=== PATIENT | female | born 1995 | race Caucasian/White ===

== ENCOUNTER → 2016-08-24 | Outpatient (CLI) | payer MEDICAID ==
[2016-08-24 19:13] LABS: BASO % 0.1 % (0.0-1.0); EOS # 0.1 K/mm3 (0.0-0.50); EOS % 1.2 % (0.0-3.0); LARGE UNSTAINED CELL # 0.1 K/mm3 (0.0-0.4); LARGE UNSTAINED CELL % 1.5 % (0.0-4.0); LYMPH # 0.9 K/mm3 (1.5-6.5); LYMPH % 15.1 % (24.0-44.0); MEAN CORPUSCULAR HEMOGLOBIN 31.1 pg (27.0-33.0); MEAN CORPUSCULAR HGB CONC 34.8 g/dl (32.0-36.5); MEAN CORPUSCULAR VOLUME 89.2 fl (80.0-96.0); MONO # 0.3 K/mm3 (0.0-0.8); MONO % 4.6 % (0.0-5.0); NEUTROPHILS # 4.4 K/mm3 (1.8-7.7); NEUTROPHILS % 77.4 % (36.0-66.0); PLATELET COUNT, AUTOMATED 194 k/mm3 (150-450); RED CELL DISTRIBUTION WIDTH 12.9 % (11.5-14.5); WHITE BLOOD COUNT 5.7 K/mm3 (4.0-10.0)
[2016-08-27 11:31] LABS: HBsAg Prenatal NEGATIVE (NEGATIVE)
== END ==
LOC: M SMT 10:29
PROVIDERS: ATTEND Obstetrics & Gynecology
DX: Z34.82 Encounter for supervision of other normal pregnancy, second trimester (principal)

== ENCOUNTER → 2016-10-03 | Outpatient (CLI) | payer OTHER ==
--- NOTE | 2016-10-04 05:32 | REP ---
Clinical: Anatomical evaluation. Comparison: None . Findings: Examination demonstrates a single live intrauterine in breech presentation. motion is identified by technologist. Placenta is noted anteriorly and grade one without evidence for placenta previa or abruption. Amniotic fluid volume is normal. Cervix measures 3.4 cm in length and appears closed. No evidence for nuchal cord. Gestational age by LMP 18 weeks 1 day with SHAUN 03/05/2017 . Gestational age by current measurements 18 weeks 1 day with SHAUN 03/05/2017 . FHR equals 144 beats per minute. BPD 4.0 cm 18 weeks 0 days HC 14.9 cm 18 weeks 0 days AC 12.4 cm 18 weeks 0 days FL 2.6 cm 18 weeks 0 days HL 2.6 cm 18 weeks 2 days HC/AC ratio 1.20 Estimated weight 220 grams ( 43rd percentile). Anatomical assessment demonstrates normal structures including cranium, choroid plexus, cavum, cerebellum/posterior fossa, facial features, lungs, four-chamber heart/ventricular outflow tracts, diaphragm, stomach, cord insertion/three-vessel cord, kidneys/bladder, spine, and extremities. Impression: Single live intrauterine in breech presentation demonstrating appropriate interval growth. Anatomical assessment is complete and normal. No gross abnormalities are identified. Signed by Guero Rizvi MD 10/04/2016 05:25 A
== END ==
LOC: M RAD 09:37
PROVIDERS: ATTEND Advanced Practice Midwife
DX: Z36 Encounter for antenatal screening of mother (principal)

== ENCOUNTER → 2016-11-21 | Outpatient (CLI) | payer MEDICAID, OTHER ==
[~2016-11-21] MED LIST: ACET50TA PO; IBUP-1022 PO; OXYC1SOL5 PO; PERCOCET PO; PRE-TAB3 PO; ZOLO25TA PO
[2016-11-21 13:19] LABS: MEAN CORPUSCULAR HGB CONC 34.3 g/dl (32.0-36.5); MEAN CORPUSCULAR VOLUME 93.4 fl (80.0-96.0); WHITE BLOOD COUNT 7.2 K/mm3 (4.0-10.0)
== END ==
LOC: M SMT 09:57
PROVIDERS: ATTEND Obstetrics & Gynecology
DX: Z34.82 Encounter for supervision of other normal pregnancy, second trimester (principal)

== ENCOUNTER 2017-01-08 20:07 | Outpatient (CLI) | payer MEDICAID, OTHER ==
[~2017-01-08] VITALS: Ht 144.8 cm; Wt 58.0 kg
[2017-01-08 20:17] VITALS: BP 101/61
[2017-01-08] MEDS ORDERED: PRE-TAB3 PO (20:44)
[2017-01-28] MEDS ORDERED: PERCOCET PO (18:43)
[2017-03-01] MEDS ORDERED: ZOLO25TA PO (07:42)
[2017-03-01] MEDS ORDERED: ACET50TA PO (10:47)
[2017-03-01] MEDS ORDERED: IBUP-1022 PO (10:47)
== END 2017-01-08 21:17 | disposition home or self-care (01) ==
LOC: M LDO 20:07
PROVIDERS: ATTEND Advanced Practice Midwife
DX: O99.89 Other specified diseases and conditions complicating pregnancy, childbirth and the puerperium (principal); Z3A.32 32 weeks gestation of pregnancy; R10.9 Unspecified abdominal pain; R19.7 Diarrhea, unspecified; O13.3 Gestational [pregnancy-induced] hypertension without significant proteinuria, third trimester; F32.9 Major depressive disorder, single episode, unspecified; F41.9 Anxiety disorder, unspecified; O99.343 Other mental disorders complicating pregnancy, third trimester

== ENCOUNTER → 2017-01-10 | Outpatient (REF) | payer OTHER, MEDICAID | LOC: M LAB REF 13:13 | PROVIDERS: ATTEND Advanced Practice Midwife | DX: Z34.83 Encounter for supervision of other normal pregnancy, third trimester (principal); Z36 Encounter for antenatal screening of mother ==

== ENCOUNTER → 2017-01-28 | Outpatient (CLI) | payer OTHER, MEDICAID ==
--- NOTE | 2017-01-28 17:52 | REP ---
Urinary tract sonography: History: Low back pain. Hematuria. No comparison study. 34 weeks gestation. Findings: heart rate is recorded at the time of this study at 144 beats per minute. Scanning at the level of the urinary bladder shows some hypoechoic debris within the bladder lumen. Bladder hester are smooth. There is moderate to severe right-sided hydronephrosis. The right renal pelvis measures 2.8 cm in AP dimension. There is a partially shadowing echogenic focus in the upper pole collecting system of the right kidney consistent with a stone measuring 10 x 7 x 11 mm. The right kidney measures 12.6 x 5.2 x 4.7 cm. Left renal dimensions are 11.0 x 4.7 x 4.4 cm. There is mild left-sided hydronephrosis. No left renal calculi are seen. No renal masses observed on either side. Impression: Moderate to advanced hydronephrosis on the right. There is a nonobstructive upper pole 1.1 cm calculus. No ureteral calculus is observed sonographically. Mild hydronephrosis is noted on the left. Signed by Sree Ferreira MD 01/28/2017 08:02 P
== END ==
LOC: M RAD 17:00
PROVIDERS: ATTEND Obstetrics & Gynecology
DX: R31.9 Hematuria, unspecified (principal)

== ENCOUNTER → 2017-02-05 | Outpatient (REF) | payer OTHER, MEDICAID | LOC: M LAB REF 17:03 | PROVIDERS: ATTEND Obstetrics & Gynecology | DX: Z34.83 Encounter for supervision of other normal pregnancy, third trimester (principal); Z36.85 Encounter for antenatal screening for Streptococcus B ==

== ENCOUNTER 2017-02-16 04:22 | Outpatient (CLI) | payer OTHER, MEDICAID ==
[~2017-02-16] VITALS: Ht 144.8 cm; Wt 64.4 kg
[~2017-02-16 04:22] MED LIST changes: -ACET50TA PO; -IBUP-1022 PO; -OXYC1SOL5 PO; -ZOLO25TA PO
[2017-02-16] MEDS ORDERED: OXYC1SOL5 PO (05:44)
[2017-02-16] MEDS ORDERED: ACETAMINOPHEN/CODEINE 12.5 ML UDC PO ONE (05:45)
[2017-02-16 06:17] VITALS: BP 131/76
[2017-03-01] MEDS ORDERED: ZOLO25TA PO (07:42)
[2017-03-01] MEDS ORDERED: ACET50TA PO (10:47)
[2017-03-01] MEDS ORDERED: IBUP-1022 PO (10:47)
== END 2017-02-16 07:05 | disposition home or self-care (01) ==
LOC: M LDO 04:22
PROVIDERS: ATTEND Obstetrics & Gynecology
DX: O47.1 False labor at or after 37 completed weeks of gestation (principal); Z3A.37 37 weeks gestation of pregnancy; N20.0 Calculus of kidney

== ENCOUNTER → 2018-01-09 | Outpatient (REF) | payer OTHER ==
[2018-01-09 17:57] LABS: CHLAMYDIA DNA AMPLIFICATION NEGATIVE (NEGATIVE); GC DNA AMPLIFICATION NEGATIVE (NEGATIVE)
== END ==
LOC: M LAB REF 13:36
DX: N94.10 Unspecified dyspareunia (principal)

== ENCOUNTER → 2018-05-06 | Outpatient (CLI) | payer OTHER ==
[~2018-05-06] MED LIST changes: +IBUP-1022 PO; +MAPA500T2 PO; +OXYC1SOL5 PO; +ZOLO25TA PO
[2018-05-06 17:52] LABS: HCG, SERUM QUALITATIVE NEGATIVE (NEGATIVE)
[2018-05-06 17:55] LABS: HEMATOCRIT 41.2 % (36.0-47.0); HEMOGLOBIN 13.3 g/dl (12.0-15.5); MEAN CORPUSCULAR HEMOGLOBIN 28.9 pg (27.0-33.0); MEAN CORPUSCULAR HGB CONC 32.3 g/dl (32.0-36.5); MEAN CORPUSCULAR VOLUME 89.6 fl (80.0-96.0); PLATELET COUNT, AUTOMATED 226 10^3/uL (150-450); WHITE BLOOD COUNT 3.3 10^3/uL (4.0-10.0)
[2018-05-06 18:00] LABS: FREE T4 0.86 NG/DL (0.76-1.46); THYROID STIMULATING HORMONE 0.849 uIU/ML (0.358-3.740)
== END ==
LOC: M SMT 10:46
PROVIDERS: ATTEND Advanced Practice Midwife
DX: N92.6 Irregular menstruation, unspecified (principal)

== ENCOUNTER → 2018-07-07 | Outpatient (CLI) | payer OTHER ==
[2018-07-07 13:28] LABS: HCG, SERUM QUALITATIVE NEGATIVE (NEGATIVE)
== END ==
LOC: M SMT 11:10
PROVIDERS: ATTEND Advanced Practice Midwife
DX: N92.6 Irregular menstruation, unspecified (principal)

== ENCOUNTER → 2018-07-07 | Outpatient (REF) | payer OTHER | LOC: M LAB REF 13:39 | PROVIDERS: ATTEND Advanced Practice Midwife | DX: Z12.4 Encounter for screening for malignant neoplasm of cervix (principal); N76.0 Acute vaginitis ==

== ENCOUNTER 2019-04-07 17:10 | Outpatient (CLI) | payer OTHER ==
[~2019-04-07] VITALS: Ht 147.3 cm; Wt 60.1 kg
[2019-04-07 17:27] VITALS: BP 107/65
[2019-04-07 18:26] VITALS: BP 107/55
--- NOTE | 2019-04-07 19:49 | REPVR ---
PROCEDURE INFORMATION: Exam: US First Trimester, Transabdominal Exam date and time: 04/07/2019 7:00 PM Age: 23 years old Clinical history: complicated by abdominal or pelvic pain; Lower; Second trimester; Gestational age or lmp: 27; ; Additional info: Cervical length TECHNIQUE: Imaging protocol: Real-time transabdominal obstetrical ultrasound of the maternal pelvis and a first trimester , less than 14 weeks 0 days, with image documentation. COMPARISON: US OBS SINGEL GEST 10/03/2016 10:06 AM FINDINGS: GESTATION: Gestation: structural survey including intracranial contents, posterior fossa, lungs, 4 chambered view of the heart with outflow tracts, diaphragm, stomach, cord insertion and documentation a three-vessel cord, kidneys and bladder are unremarkable. face suboptimally visualized. spine not evaluated. Heart rate: heart rate 130 beats per minute. Presentation: Fetus in breech position. Placenta: Anterior placenta without previa or abruption. Grade 0. Amniotic fluid: Amniotic fluid volume index 21.5 cm. BIOMETRY: Estimated gestational age: Gestational age based on LMP of 09/27/2018 27 weeks 3 days. This is compatible with current ultrasound measurements. Estimated weight: Estimated weight is 1051 g the 39th percentile) Biparietal diameter: BPD measures 6.9 cm Head circumference: Head circumference 24.4 cm Abdominal circumference: Abdominal circumference 22.8 cm Femur length: Femur length 5.2 cm MATERNAL: Uterus: Unremarkable. Cervix: Cervix measures 4.3 cm with minimal funneling with fundal pressure. Right adnexa: Unremarkable. Left adnexa: Unremarkable. Intraperitoneal: No intraperitoneal free fluid. IMPRESSION: Minimal cervical funneling as described above. Otherwise unremarkable second trimester scan at 27 weeks 3 days. No other abnormality is demonstrated. Electronically signed by: Raj Gonzales On 04/07/2019 19:49:13 PM
[2019-04-07 19:58] LABS: CHLAMYDIA DNA AMPLIFICATION NEGATIVE (NEGATIVE); GC DNA AMPLIFICATION NEGATIVE (NEGATIVE)
[2019-04-07 20:06] VITALS: BP 100/62
== END 2019-04-07 20:15 | disposition home or self-care (01) ==
LOC: M LDO 17:10
PROVIDERS: ATTEND Obstetrics & Gynecology
DX: O26.893 Other specified pregnancy related conditions, third trimester (principal); R10.9 Unspecified abdominal pain; Z3A.27 27 weeks gestation of pregnancy

== ENCOUNTER → 2019-05-01 | Outpatient (CLI) | payer OTHER ==
[2019-05-01 17:26] LABS: HEMATOCRIT 32.2 % (36.0-47.0); HEMOGLOBIN 10.3 g/dl (12.0-15.5); MEAN CORPUSCULAR HEMOGLOBIN 29.5 pg (27.0-33.0); MEAN CORPUSCULAR VOLUME 92.3 fl (80.0-96.0); PLATELET COUNT, AUTOMATED 206 10^3/uL (150-450); RED BLOOD COUNT 3.49 10^6/uL (4.00-5.40); WHITE BLOOD COUNT 6.5 10^3/uL (4.0-10.0)
== END ==
LOC: M PLALAB 13:33
PROVIDERS: ATTEND Specialist
DX: Z34.93 Encounter for supervision of normal pregnancy, unspecified, third trimester (principal)

== ENCOUNTER → 2019-05-21 | Outpatient (CLI) | payer OTHER | LOC: M LAB 08:21 | PROVIDERS: ATTEND Advanced Practice Midwife | DX: Z34.83 Encounter for supervision of other normal pregnancy, third trimester (principal) ==

== ENCOUNTER → 2019-05-25 | Outpatient (CLI) | payer OTHER ==
[2019-05-25 18:09] LABS: APPEARANCE, URINE CLEAR (CLEAR); BACTERIA, URINE AUTO 1+ (NEGATIVE); BILIRUBIN, URINE AUTO NEGATIVE (NEGATIVE); BLOOD, URINE BLOOD NEGATIVE (NEGATIVE); COLOR, URINE YELLOW (YELLOW); GLUCOSE, URINE (UA) AUTO NEGATIVE (NEGATIVE); KETONE, URINE AUTO NEGATIVE (NEGATIVE); LEUKOCYTE ESTERASE, URINE AUTO NEGATIVE (NEGATIVE); MUCUS, URINE SMALL (NEGATIVE); NITRITE, URINE AUTO NEGATIVE (NEGATIVE); PROTEIN, URINE AUTO NEGATIVE (NEGATIVE); RBC, URINE AUTO 0 /HPF (0-3); SPECIFIC GRAVITY URINE AUTO 1.008 (1.002-1.035); SQUAMOUS EPITHELIAL CELL UR AU 0 /HPF (0-6); UROBILINOGEN, URINE AUTO 0.2 mg/dL (0.0-2.0); WBC, URINE AUTO 0 /HPF (0-3)
--- NOTE | 2019-05-26 01:52 | REP ---
Clinical: Advanced with back pain and CVA tenderness. Technique: Real time santacruz scale and color Doppler evaluation using curved array transducer. Findings: The left kidney is normal in contour, size, echogenicity, and reniform shape without hydronephrosis, nephrolithiasis, cystic or renal mass lesion. Left kidney measures 11.2 x 6.7 x 4.5 cm (RI 0.67). The right kidney measures 10.8 x 7.1 x 4.6 cm (RI 0.64) and demonstrates moderate hydroureteronephrosis and possible 6 mm nonobstructing lower pole calculus. Bladder is normal in appearance and without wall thickening or mass lesion. Prevoid bladder measures 28 ml. Postvoid bladder was completely emptied. Impression: Moderate right-sided hydroureteronephrosis possibly induced. follow-up may be warranted. 6 mm nonobstructing right lower pole calculus cannot be excluded as well.
== END ==
LOC: M WHC 13:00
PROVIDERS: ATTEND Advanced Practice Midwife
DX: O26.893 Other specified pregnancy related conditions, third trimester (principal); Z3A.00 Weeks of gestation of pregnancy not specified; R10.2 Pelvic and perineal pain

== ENCOUNTER → 2019-05-28 | Outpatient (CLI) | payer OTHER ==
[2019-05-28 13:18] LABS: BASO % 0.1 % (0.0-1.0); HEMATOCRIT 33.3 % (36.0-47.0); HEMOGLOBIN 10.4 g/dl (12.0-15.5); LYMPH # 0.8 10^3/uL (1.5-5.0); LYMPH % 9.6 % (24.0-44.0); MEAN CORPUSCULAR HEMOGLOBIN 28.4 pg (27.0-33.0); MEAN CORPUSCULAR HGB CONC 31.2 g/dl (32.0-36.5); MONO # 0.6 10^3/uL (0.0-0.8); MONO % 7.4 % (0.0-5.0); NEUTROPHILS # 6.7 10^3/uL (1.5-8.5); NEUTROPHILS % 82.3 % (36.0-66.0); PLATELET COUNT, AUTOMATED 207 10^3/uL (150-450); RED BLOOD COUNT 3.66 10^6/uL (4.00-5.40); WHITE BLOOD COUNT 8.1 10^3/uL (4.0-10.0)
[2019-05-28 13:58] LABS: FREE T4 0.98 NG/DL (0.76-1.46); THYROID STIMULATING HORMONE 0.624 uIU/ML (0.358-3.740)
== END ==
LOC: M PLALAB 12:06
PROVIDERS: ATTEND Advanced Practice Midwife
DX: R53.83 Other fatigue (principal)

== ENCOUNTER → 2019-06-04 | Outpatient (REF) | payer OTHER | LOC: M SFHCWAGY 16:54 | PROVIDERS: ATTEND Obstetrics & Gynecology | DX: Z36.85 Encounter for antenatal screening for Streptococcus B (principal) ==

== ENCOUNTER 2019-06-11 16:29 | Outpatient (CLI) | payer OTHER ==
[~2019-06-11] VITALS: Ht 147.3 cm; Wt 64.2 kg
[2019-06-11 16:48] VITALS: BP 100/57
--- NOTE | 2019-06-11 21:46 | IPN ---
DATE: 06/11/2019 23-year-old 4, para 2 female at 36-5/7 weeks gestation presents with cramping in her lower abdomen for 1 day. She has had decreased movement. She feels some movements but it is not as much as usual. OBJECTIVE: Afebrile. Vital signs stable. No apparent distress. Head and neck exam: Normal. Abdomen: Nontender, gravid, heart tones category 1. Contractions: None. Sterile vaginal exam: Internal os closed, long, firm. BEDSIDE ULTRASOUND: Numerous movements observed. Vertex fetus. Normal amniotic fluid. ASSESSMENT: 23-year-old 4, para 2 at 36-5/7 weeks gestation with no evidence of labor with reassuring testing. PLAN: Followup in the office in 1 week as scheduled. Reviewed kick counts.
[2019-06-12] MEDS ORDERED: MAPA500T2 PO (17:38)
[2019-06-12] MEDS ORDERED: NITR-67 PO (18:44)
== END 2019-06-11 17:53 | disposition home or self-care (01) ==
LOC: M LDO 16:29
PROVIDERS: ATTEND Specialist
DX: O36.8130 Decreased fetal movements, third trimester, not applicable or unspecified (principal); Z3A.36 36 weeks gestation of pregnancy

== ENCOUNTER 2019-06-12 17:04 | Outpatient (CLI) | payer OTHER ==
[~2019-06-12] VITALS: Ht 162.6 cm; Wt 63.5 kg
[2019-06-12 17:25] VITALS: BP 118/74
[2019-06-12] MEDS ORDERED: MAPA500T2 PO (17:38)
[2019-06-12 18:15] LABS: AMORPHOUS SEDIMENT SMALL (NEGATIVE); APPEARANCE, URINE CLOUDY (CLEAR); BACTERIA, URINE AUTO NEGATIVE (NEGATIVE); BILIRUBIN, URINE AUTO NEGATIVE (NEGATIVE); BLOOD, URINE BLOOD 1+ (NEGATIVE); COLOR, URINE YELLOW (YELLOW); GLUCOSE, URINE (UA) AUTO NEGATIVE (NEGATIVE); KETONE, URINE AUTO TRACE mg/dL (NEGATIVE); LEUKOCYTE ESTERASE, URINE AUTO NEGATIVE (NEGATIVE); MUCUS, URINE SMALL (NEGATIVE); NITRITE, URINE AUTO NEGATIVE (NEGATIVE); PROTEIN, URINE AUTO NEGATIVE (NEGATIVE); RBC, URINE AUTO 1 /HPF (0-3); SPECIFIC GRAVITY URINE AUTO 1.019 (1.002-1.035); SQUAMOUS EPITHELIAL CELL UR AU 1 /HPF (0-6); WBC, URINE AUTO 4 /HPF (0-3)
[2019-06-12] MEDS ORDERED: NITR-67 PO (18:44)
[2019-06-12] MEDS ORDERED: NITROFURANTOIN (MACROBID) 100 MG CAP PO SCH (18:45)
--- NOTE | 2019-06-12 18:50 | IPNPDOC ---
Text Note Date of Service The patient was seen on 06/12/19. NOTE Outpatient 23yo SHAUN 07/04/2019. Presents @ 36w6d with complaints of lower abdominal discomfort associated with decreased movement. Denies LOF or bleeding. Low grade temp 99 Cat I tracing, no UC Abdomen mildly uncomfortable to palpation along suprapubic region. UA +1 blood, leuk, trace ketones Probable early UTI Start macrobid, rx sent to [facility] to pay attention to baby every day, increase fluid intake. Discharged home. Keep next appt VS,Fishbone, I+O VS, Fishbone, I+O Vital Signs Date Time Temp Pulse Resp B/P (MAP) Pulse Ox O2 Delivery O2 Flow Rate FiO2 06/12/19 17:25 99.5 106 16 118/74 (89) Cheyanne Miller CNM Jun 12, 2019 18:50
== END 2019-06-12 19:15 | disposition home or self-care (01) ==
LOC: M LDO 17:04
PROVIDERS: ATTEND Advanced Practice Midwife
DX: O36.8130 Decreased fetal movements, third trimester, not applicable or unspecified (principal); Z3A.36 36 weeks gestation of pregnancy; O26.893 Other specified pregnancy related conditions, third trimester; R10.30 Lower abdominal pain, unspecified; R50.9 Fever, unspecified; Z79.899 Other long term (current) drug therapy

== ENCOUNTER 2019-06-21 21:36 | Outpatient (CLI) | payer OTHER ==
[~2019-06-21 21:36] MED LIST changes: +NITR-67 PO
== END 2019-06-22 01:00 | disposition home or self-care (01) ==
LOC: M LDO 21:36
PROVIDERS: ATTEND Obstetrics & Gynecology
DX: O47.1 False labor at or after 37 completed weeks of gestation (principal); Z3A.38 38 weeks gestation of pregnancy; O99.343 Other mental disorders complicating pregnancy, third trimester; F41.8 Other specified anxiety disorders; Z79.899 Other long term (current) drug therapy

== ENCOUNTER 2019-06-23 12:08 | Outpatient (CLI) | payer OTHER ==
[~2019-06-23] VITALS: Ht 147.3 cm; Wt 65.1 kg
[2019-06-23 12:24] VITALS: BP 115/69
[2019-06-23 13:02] VITALS: BP 110/69
[2019-06-23 15:05] VITALS: BP 93/51
[2019-06-23 15:27] VITALS: BP 109/66
[2019-06-23 16:15] VITALS: BP 104/62
== END 2019-06-23 16:33 ==
LOC: M LDO 12:08
PROVIDERS: ATTEND Obstetrics & Gynecology
DX: O47.1 False labor at or after 37 completed weeks of gestation (principal); Z3A.38 38 weeks gestation of pregnancy; O99.343 Other mental disorders complicating pregnancy, third trimester; F41.8 Other specified anxiety disorders; Z79.899 Other long term (current) drug therapy

== ENCOUNTER → 2019-06-26 | Outpatient (REF) | payer OTHER | LOC: M SFHCWAGY 14:49 | PROVIDERS: ATTEND Advanced Practice Midwife | DX: Z34.93 Encounter for supervision of normal pregnancy, unspecified, third trimester (principal) ==

== ENCOUNTER 2019-06-28 09:18 | Inpatient (IN) | payer OTHER ==
[~2019-06-28] VITALS: Ht 147.3 cm; Wt 65.5 kg
[2019-06-28] VITALS (15 sets, daily range): BP systolic 95–141; BP diastolic 55–81
[2019-06-28 10:24] LABS: HEMATOCRIT 30.1 % (36.0-47.0); HEMOGLOBIN 9.8 g/dl (12.0-15.5); MEAN CORPUSCULAR HEMOGLOBIN 27.9 pg (27.0-33.0); MEAN CORPUSCULAR HGB CONC 32.6 g/dl (32.0-36.5); MEAN CORPUSCULAR VOLUME 85.8 fl (80.0-96.0); PLATELET COUNT, AUTOMATED 222 10^3/uL (150-450); RED BLOOD COUNT 3.51 10^6/uL (4.00-5.40); WHITE BLOOD COUNT 8.4 10^3/uL (4.0-10.0)
[2019-06-28] MEDS: miSOPROStol 50 MCG 1/2 TAB (S0191) SL SCH ×2 (10:32→14:53)
--- NOTE | 2019-06-28 14:04 | HPE ---
DATE OF ADMISSION: 06/28/2019 A 23-year-old G4, P2-0-1-2 female at 30-1/7 weeks gestation by last menstrual period (LMP) consistent with an ultrasound, estimated date of confinement (EDC) of 07/04/2019, presents for labor induction. She has occasional contractions. She denies vaginal bleeding, There is good movement. COURSE: Patient initiated care in the first trimester. She had no complications. OBSTETRICAL HISTORY: 1. March 2012: 37 week vaginal delivery, 6 pound 12 ounce male . 2. August 2015: Miscarriage. 3. 2017: Vaginal delivery, 6 pound 7 ounce infant. MEDICAL HISTORY: 1. Depression and anxiety. SURGICAL HISTORY: 1. Dilation and curettage (D C). 2. Tonsillectomy. 3. Appendectomy. ALLERGIES: None. SOCIAL HISTORY: The patient lives in [facility]. Denies cigarettes, alcohol or drug use. FAMILY HISTORY: Noncontributory, PHYSICAL EXAMINATION: Blood pressure 108/64, pulse 89, afebrile. No apparent distress. HEAD AND NECK EXAM: Normal. LUNGS: Clear. HEART: Regular rate and rhythm. ABDOMEN: Nontender, gravid. HEART TONES: Category one. CONTRACTIONS: Irregular. STERILE VAGINAL EXAM: 2 cm, 70%, -2, posterior moderate vertex. EXTREMITIES: Nontender. LABORATORIES: Blood type A positive, rubella immune, rapid plasma reagin (RPR) nonreactive, hepatitis B and C negative, group B Streptococcus (GBS) negative. ASSESSMENT: A 23-year-old G4, P2-0-1-2 female at 39-1/7 weeks gestation presents for labor induction. PLAN: Patient is admitted on 06/28/2019. Risks of induction were discussed.
[2019-06-28] MEDS ORDERED: OXYTOCIN DRIP 30 UNITS in IV 1 EA IV SCH (18:15)
[2019-06-28] MEDS: LR 1,000 ML IV SCH (18:42)
[2019-06-28] MEDS ORDERED: PROMETHAZINE INJ 25 MG/ML VIAL (J2550) IV ONE (19:45)
[2019-06-28] MEDS ORDERED: BUTORPHANOL 2 MG/ML INJ (J0595) IV ONE (19:45)
[2019-06-29] VITALS (32 sets, daily range): BP systolic 95–119; BP diastolic 54–73
[2019-06-29] MEDS ORDERED: FENTANYL 2MCG/ML ROPIVACAINE 0.2% IN 0.9% NACL 100ML IVBAG As Ordered ONE (01:23)
[2019-06-29] MEDS: LR 1,000 ML IV SCH (02:56)
[2019-06-29] MEDS ORDERED: NALOXONE INJ 0.4 MG/1 ML VIAL (J2310) IV PRN (03:00)
[2019-06-29] MEDS ORDERED: LACTATED RINGER'S 1000 ML IV PRN (03:00)
[2019-06-29] MEDS ORDERED: REFRIGERATOR IV KEYS XX PRN (03:00)
[2019-06-29] MEDS ORDERED: EPIDURAL COMMENT XX SCH (03:00)
[2019-06-29] MEDS ORDERED: diphenhydrAMINE INJ 50MG/ML VIAL (J1200) IV PRN (03:00)
[2019-06-29] MEDS ORDERED: FENTANYL/ROPIVACAINE/NACL BAG 100 ML EPIDURAL SCH (03:00)
[2019-06-29] MEDS ORDERED: ePHEDrine SULFATE 25 MG/5 ML(5MG/ML) SYRINGE IV PRN (03:00)
[2019-06-29] MEDS ORDERED: ONDANSETRON 4MG/2ML VIAL (J2405) IV PRN ×2 (03:00→08:00)
[2019-06-29] MEDS ORDERED: EPIDURAL/PCA KEYS XX PRN (03:00)
[2019-06-29] MEDS ORDERED: RHOGAM 300 MCG (1500 IU) INJ (J2790) IM SCH (08:00)
[2019-06-29] MEDS ORDERED: IBUPROFEN 800 MG TAB PO PRN (08:00)
[2019-06-29] MEDS ORDERED: DIBUCAINE 1% OINTMENT 30GM TOP PRN (08:00)
[2019-06-29] MEDS ORDERED: IBUPROFEN 600 MG TAB PO PRN (08:00)
[2019-06-29] MEDS ORDERED: MEASLES,MUMPS,RUBELLA VACCINE INJ (MMR-II) (90707) SC SCH (08:00)
[2019-06-29] MEDS ORDERED: ACETAMINOPHEN TAB 650MG DOSE (2X325MG) PO PRN (08:00)
[2019-06-29] MEDS ORDERED: ACETAMINOPHEN 500 MG TAB PO PRN (08:00)
[2019-06-29] MEDS ORDERED: OXYTOCIN DRIP 30 UNITS in IV 1 EA IV ONE (08:00)
[2019-06-29] MEDS ORDERED: DOCUSATE SODIUM 100 MG CAP PO PRN (08:00)
[2019-06-29] MEDS ORDERED: METHYLERGONOVINE MALEATE 0.2 MG TAB PO PRN (08:00)
[2019-06-29] MEDS: PRENATAL VITAMINS CHEWABLE TABLET PO SCH (10:04)
[2019-06-29] MEDS: IBUPROFEN 100 MG/5 ML SUSP UDC DYE FREE PO PRN ×2 (11:12→19:42)
[2019-06-29] MEDS ORDERED: IBUPROFEN 100 MG/5 ML SUSP UDC DYE FREE PO PRN (11:30)
[2019-06-29] MEDS ORDERED: ACETAMINOPHEN 325 MG/10.15 ML UDC PO PRN (11:30)
[2019-06-29] MEDS: ACETAMINOPHEN 325 MG/10.15 ML UDC PO PRN ×3 (12:38→22:11)
[2019-06-30] MEDS: IBUPROFEN 100 MG/5 ML SUSP UDC DYE FREE PO PRN (03:53)
[2019-06-30 06:00] VITALS: BP 103/62
--- NOTE | 2019-06-30 06:24 | DN ---
DATE OF DELIVERY: 06/29/2019 PREDELIVERY DIAGNOSIS: Term , labor, induction. POST DELIVERY DIAGNOSIS: Delivery. PROCEDURE: Spontaneous vaginal delivery. DEPUTY SHERIFF GENERALIST: Dr. Hoang Scott ANESTHESIA: Epidural. ESTIMATED BLOOD LOSS: 300 ML. FINDINGS: 7 pounds 9 ounce female. scores 8 and 9. DELIVERY SUMMARY: After a short second stage of approximately 10 minutes, the patient spontaneously delivered a 7 pound 9 ounce female with scores of 8 and 9 under epidural anesthesia. There was no nuchal cord. The shoulders delivered with ease. The infant was handed to the mother and cried immediately. The cord was doubly clamped and cut. The placenta delivered spontaneously and appeared to be intact. The patient received IV Pitocin immediately after delivery of the placenta. There were no vaginal lacerations present. Sponge counts were correct.
--- NOTE | 2019-06-30 07:06 | IPNPDOC ---
Progress Note Date of Service: Jun 30, 2019 Day#: 1 Progress Note SUBJECT: Celina is a 23-year-old 4 now Para 3-0-1-4 status post uncompl icated spontaneous vaginal delivery at 39-2/7 weeks' gestation and doing well day # 1. She has been ambulating, voiding spontaneously without issue and tolerating regular diet. Breast feeding with minimal issue, reports some nipple soreness, but no lesions. Reports lochia is like a normal period. Pain is well-controlled. OBJECTIVE: VITAL SIGNS: Within normal limits, afebrile. Alert and oriented times three. Breath sounds clear to auscultation. Heart rate: Regular rate and rhythm, no murmurs, rubs or gallops. Abdomen: Fundus firm at U-1. Soft, appropriately tender to palpation. Minimal lochia. ASSESSMENT: day #1. PLAN: 1. Discharge to home tomorrow. 2. Tylenol and Motrin for pain. 3. Encourage breast feeding and ambulation. 4. Lanolin for nipple soreness. 5. Routine care. VS, I&O, 24H, Fishbone Vital Signs/I&O Vital Signs Date Time Temp Pulse Resp B/P (MAP) Pulse Ox O2 Delivery O2 Flow Rate FiO2 06/30/19 06:00 98.1 88 18 103/62 (76) 06/29/19 07:11 98 Room Air I&O- Last 24 Hours up to 6 AM 06/30/19 06:00 Intake Total 2542 ml Output Total 1600 ml Balance 942 ml LYN ARANA CNM Jun 30, 2019 07:06
[2019-06-30] MEDS: ACETAMINOPHEN 325 MG/10.15 ML UDC PO PRN (07:21)
[2019-06-30] MEDS: PRENATAL VITAMINS CHEWABLE TABLET PO SCH (09:34)
[2019-06-30 09:40] VITALS: BP 115/59
== END 2019-06-30 12:43 | disposition home or self-care (01) | DRG 560 ==
LOC: M LDI 09:18 → M PCU 06-29 10:09 → M LDI 06-29 10:13 → M OBS 06-29 14:03
PROVIDERS: ADMIT Specialist; ATTEND Specialist
PROC: 3E0234Z Introduction of Serum, Toxoid and Vaccine into Muscle, Percutaneous Approach (ICD-10-PCS; 2019-06-28)
PROC: 10E0XZZ Delivery of Products of Conception, External Approach (ICD-10-PCS; principal; 2019-06-29)
DX: O80 Encounter for full-term uncomplicated delivery (principal); Z37.0 Single live birth; Z3A.39 39 weeks gestation of pregnancy

== ENCOUNTER → 2019-10-12 | Outpatient (CLI) | payer OTHER ==
[~2019-10-12] MED LIST changes: +OXYC1TAB23 PO
== END ==
LOC: M LABSMTC 11:13
PROVIDERS: ATTEND Anesthesiology
DX: Z01.818 Encounter for other preprocedural examination (principal); Z11.59 Encounter for screening for other viral diseases
CPT/HCPCS: 87486; 87581; 87633; 87798; C9803

== ENCOUNTER 2019-10-14 09:13 | Day surgery (SDC) | payer OTHER ==
[~2019-10-14] VITALS: Ht 144.8 cm; Wt 54.4 kg
[~2019-10-14 09:13] MED LIST changes: +LR 1,000 ML IV ONE; -OXYC1TAB23 PO
[2019-10-14] MEDS ORDERED: MIDAZOLAM INJ 2MG/2ML VIAL (J2250 PER 1MG) As Ordered ONE (09:18)
[2019-10-14] MEDS ORDERED: LIDOCAINE 2% 100MG/5ML SDV (FOR ANES.) As Ordered ONE (09:18)
[2019-10-14] MEDS ORDERED: dexameTHASONE 4 MG/ML 1ML VIAL (J1100 PER 1MG) As Ordered ONE (09:18)
[2019-10-14] MEDS ORDERED: propofoL 200 MG/20 ML VIAL As Ordered ONE (09:18)
[2019-10-14] MEDS ORDERED: fentaNYL 100 MCG/2 ML INJECTION (J3010) As Ordered ONE (09:18)
[2019-10-14] MEDS ORDERED: KETOROLAC 60MG 2ML VIAL As Ordered ONE (09:18)
[2019-10-14] MEDS ORDERED: ONDANSETRON 4MG/2ML VIAL As Ordered ONE ×2 (09:18→13:47)
[2019-10-14] MEDS ORDERED: HYDROmorphone HCL 2 MG/ML 1ML VIAL (J1170) As Ordered ONE (09:18)
[2019-10-14] MEDS ORDERED: ROCURONIUM BROMIDE 50 MG/5 ML VIAL As Ordered ONE (09:18)
[2019-10-14 09:46] LABS: HEMATOCRIT 38.5 % (36.0-47.0); HEMOGLOBIN 12.4 g/dl (12.0-15.5); MEAN CORPUSCULAR HEMOGLOBIN 27.7 pg (27.0-33.0); MEAN CORPUSCULAR HGB CONC 32.2 g/dl (32.0-36.5); MEAN CORPUSCULAR VOLUME 86.1 fl (80.0-96.0); PLATELET COUNT, AUTOMATED 233 10^3/uL (150-450); RED BLOOD COUNT 4.47 10^6/uL (4.00-5.40); WHITE BLOOD COUNT 5.1 10^3/uL (4.0-10.0)
[2019-10-14] MEDS ORDERED: OXYC1TAB23 PO (09:54)
[2019-10-14] MEDS ORDERED: IBUP-1022 PO (09:55)
[2019-10-14] MEDS ORDERED: BUPIVACAINE HCL 0.25% 10ML VIAL As Ordered ONE (09:57)
[2019-10-14] MEDS ORDERED: LIDOCAINE 1% MDV 20ML VIAL As Ordered ONE (09:57)
[2019-10-14] MEDS ORDERED: ACETAMINOPHEN 1000MG 100ML IV BTL (OFIRMEV) (J0131 PER 10MG) As Ordered ONE (10:34)
[2019-10-14] MEDS ORDERED: SUGAMMADEX SODIUM 500 MG/5 ML VIAL (BRIDION) As Ordered ONE (10:35)
[2019-10-14] MEDS ORDERED: LR 1,000 ML IV SCH ×2 (11:45)
[2019-10-14] MEDS ORDERED: PERCOCET 5MG/325MG TAB PO PRN (11:45)
[2019-10-14] MEDS ORDERED: fentaNYL 100 MCG/2 ML INJECTION (J3010) IV PRN (11:45)
[2019-10-14] MEDS ORDERED: ONDANSETRON 4MG/2ML VIAL IV PRN (11:45)
[2019-10-14] MEDS ORDERED: oxyCODONE 5MG TAB PO PRN (11:45)
[2019-10-14 14:55] VITALS: BP 115/66
--- NOTE | 2019-10-15 12:52 | RO ---
DATE OF OPERATION: 10/14/2019 PREOPERATIVE DIAGNOSIS: Menorrhagia. POSTOPERATIVE DIAGNOSIS: Menorrhagia. PROCEDURE: Laparoscopic bilateral salpingectomy, hysteroscopy, NovaSure endometrial ablation. SURGEON: Hoang Scott MD AIR DRILL OPERATOR: ANESTHESIA: Laryngeal mask airway (LMA). ESTIMATED BLOOD LOSS: 10 mL. URINE OUTPUT: 50 mL. FINDINGS: Normal appearing endometrial cavity. Normal pelvis including the uterus, fallopian tubes, and ovaries. OPERATIVE SUMMARY: The patient was taken to the operating room where LMA anesthesia was induced. She was prepped and draped in the sterile fashion in the dorsal lithotomy position. A Hodge catheter was placed. A sponge stick was placed in the vagina using the manipulator. A periumbilical incision was made with the scalpel. A Veress needle was placed through this incision while tenting up on the skin of the abdomen. Intraabdominal location of the Veress needle was assessed using a saline filled syringe. A pneumoperitoneum was created. The Veress needle was removed. A 5 mm trocar using Hammerless was inserted through this incision. A 5 and 8 suprapubic port were placed under direct visualization. Grasping instruments were used to elevate the fallopian tubes bilaterally. A LigaSure device was used to coagulate and incised broad ligament attachments to the tubes. The tubes were amputated in their origin. Both tubes were removed through the suprapubic ports. The pneumoperitoneum was released. All instruments were removed. The skin was closed with #4-0 Monocryl subcuticular sutures. Attention was turned to the vagina. A speculum was placed. The anterior lip of the cervix was grasped with a tenaculum. The cervix was dilated with taper dilators. A diagnostic hysteroscope using normal saline as a distention medium was placed through the internal os. Visualization of the endometrial cavity revealed the findings noted above. The hysteroscope was removed. NovaSure device was assembled and found to be in working order. Total cavity length was calculated at 4.0 cm. Cavity width was 4.4 cm. Power setting was calculated at 97 cunningham. A successful cavity assessment was performed. Coagulation was activated. Total coagulation time was 1 minute and 39 seconds. The NovaSure device was removed. The hysteroscope was placed back in the endometrium, and excellent coagulation effect was noted throughout the endometrium. All instruments were removed. Sponge and instrument counts were correct.
== END 2019-10-14 15:05 | disposition home or self-care (01) ==
LOC: M SDC 09:13
PROVIDERS: ATTEND Specialist
DX: Z30.2 Encounter for sterilization (principal); N92.0 Excessive and frequent menstruation with regular cycle; J45.909 Unspecified asthma, uncomplicated; F41.9 Anxiety disorder, unspecified; F32.9 Major depressive disorder, single episode, unspecified; Z79.899 Other long term (current) drug therapy
CPT/HCPCS: 36415; 58563; 58661; 81025; 85027; 88302; J0131; J1100; J1170; J1885; J2250; J2405; J3010

== ENCOUNTER → 2020-01-15 | Outpatient (CLI) | payer OTHER ==
[~2020-01-15] MED LIST changes: -LR 1,000 ML IV ONE; +OXYC1TAB23 PO
== END ==
LOC: M LABSMTC 10:00
PROVIDERS: ATTEND Anesthesiology
DX: Z01.812 Encounter for preprocedural laboratory examination (principal); Z20.828 Contact with and (suspected) exposure to other viral communicable diseases
CPT/HCPCS: C9803; U0003

== ENCOUNTER 2020-01-20 06:00 | Day surgery (SDC) | payer OTHER ==
[~2020-01-20] VITALS: Ht 144.8 cm; Wt 51.3 kg
[~2020-01-20 06:00] MED LIST changes: +LR 1,000 ML IV ONE
[2020-01-20 06:25] LABS: HEMATOCRIT 41.3 % (36.0-47.0); HEMOGLOBIN 13.5 g/dl (12.0-15.5); MEAN CORPUSCULAR HEMOGLOBIN 28.2 pg (27.0-33.0); MEAN CORPUSCULAR HGB CONC 32.7 g/dl (32.0-36.5); MEAN CORPUSCULAR VOLUME 86.4 fl (80.0-96.0); PLATELET COUNT, AUTOMATED 223 10^3/uL (150-450); RED BLOOD COUNT 4.78 10^6/uL (4.00-5.40); WHITE BLOOD COUNT 5.4 10^3/uL (4.0-10.0)
[2020-01-20] MEDS ORDERED: LIDOCAINE 2% 100MG/5ML SDV (FOR ANES.) As Ordered ONE (07:09)
[2020-01-20] MEDS ORDERED: ROCURONIUM BROMIDE 50 MG/5 ML VIAL As Ordered ONE (07:09)
[2020-01-20] MEDS ORDERED: propofoL 200 MG/20 ML VIAL As Ordered ONE (07:09)
[2020-01-20] MEDS ORDERED: SUGAMMADEX SODIUM 500 MG/5 ML VIAL (BRIDION) As Ordered ONE (07:10)
[2020-01-20] MEDS ORDERED: dexameTHASONE 4 MG/ML 1ML VIAL (J1100 PER 1MG) As Ordered ONE (07:10)
[2020-01-20] MEDS ORDERED: ONDANSETRON 4MG/2ML VIAL As Ordered ONE (07:10)
[2020-01-20] MEDS ORDERED: HYDROmorphone HCL 2 MG/ML 1ML VIAL (J1170) As Ordered ONE (07:10)
[2020-01-20] MEDS ORDERED: fentaNYL 100 MCG/2 ML INJECTION (J3010) As Ordered ONE ×2 (07:10→09:17)
[2020-01-20] MEDS ORDERED: ACETAMINOPHEN 1000MG 100ML IV BTL (OFIRMEV) (J0131 PER 10MG) As Ordered ONE (07:11)
[2020-01-20] MEDS ORDERED: MIDAZOLAM INJ 2MG/2ML VIAL (J2250 PER 1MG) As Ordered ONE (07:11)
[2020-01-20] MEDS ORDERED: KETOROLAC 60MG 2ML VIAL As Ordered ONE (07:15)
[2020-01-20] MEDS ORDERED: BUPIVACAINE HCL 0.25% 10ML VIAL As Ordered ONE (07:17)
[2020-01-20] MEDS ORDERED: ceFAZolin 2 GM/D5W 50 ML IV BAG (J0690 PER 500MG) As Ordered ONE (07:34)
[2020-01-20] MEDS ORDERED: PERCOCET 5MG/325MG TAB As Ordered ONE (09:17)
[2020-01-20] MEDS ORDERED: fentaNYL 100 MCG/2 ML INJECTION (J3010) IV PRN (09:45)
[2020-01-20] MEDS ORDERED: MORPHINE 4 MG/ML 1ML VIAL/SYRINGE (J2270) IV PRN (09:45)
[2020-01-20] MEDS ORDERED: METOCLOPRAMIDE INJ 10MG/2ML VIAL (J2765 PER 1) IV PRN (09:45)
[2020-01-20] MEDS ORDERED: ONDANSETRON 4MG/2ML VIAL IV PRN ×2 (09:45)
[2020-01-20] MEDS ORDERED: PERCOCET 5MG/325MG TAB PO PRN ×2 (09:45)
[2020-01-20] MEDS ORDERED: KETOROLAC 30 MG/ML 1ML VIAL IV PRN (09:45)
[2020-01-20] MEDS ORDERED: LR 1,000 ML IV SCH ×2 (09:45)
[2020-01-20 13:00] VITALS: BP 109/68
[2020-01-20 14:00] VITALS: BP 111/70
[2020-01-20 15:00] VITALS: BP 110/72
[2020-01-20] MEDS ORDERED: PERCOCET PO (16:36)
[2020-01-20] MEDS ORDERED: DOCUSATE SODIUM 100 MG CAP PO SCH (21:00)
--- NOTE | 2020-02-01 10:04 | RO ---
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 POSTOPERATIVE DIAGNOSIS: Post-endometrial ablation pain syndrome. PROCEDURES: * Robotic-assisted laparoscopic hysterectomy. * Cystoscopy. SURGEON: Hoang Scott MD ANESTHESIA: General endotracheal. ESTIMATED BLOOD LOSS: 500 mL. URINE OUTPUT: 100 mL. FINDINGS: Normal sized uterus. Normal ovaries. Surgically absent fallopian tubes. Normal upper abdomen. OPERATIVE SUMMARY: The patient was taken to the operating room where general endotracheal anesthesia was induced. She was prepped and draped in sterile fashion in the dorsal lithotomy position. Hodge catheter was placed. A VCare uterine manipulator was placed. A periumbilical incision was made with a scalpel. A Veress needle was placed through this incision while tenting up of the skin of the abdomen. Intraabdominal location of the Veress needles was assessed with the use of a saline-filled syringe. The pneumoperitoneum was created. The Veress needle was removed. An 8-mm trocar using the Visiport was inserted. A 5-mm scope with camera was used to survey the abdomen and pelvis. Three 8-mm suprapubic ports were placed under direct visualization. The patient was placed in Trendelenburg position. The da Karley surgical robot was docked at the ports. Using the fenestrated bipolar instrument and the vessel sealer, the utero-ovarian ligaments and round ligaments were coagulated and incised. The anterior and posterior leaves of the broad ligament were . The bladder flap was created. The uterine vessels were coagulated and incised. Using the monopolar Endoshears, a colpotomy was created in the upper vagina at the level of the VCare cup. This was extended circumferentially around the upper vagina. The specimen, including the uterus and cervix, was removed through the vagina. The vaginal cuff was closed with #1 V-Loc suture in a running fashion. The pelvis was irrigated. Good hemostasis was noted. All instruments were removed. A cystoscopy was performed using the 70 cystoscope. Bilateral ureteral jets were identified. There was no evidence of injury to the bladder. The skin was closed with 4-0 Monocryl subcuticular sutures. Sponge, instrument, and needle counts were correct. [facility]
== END 2020-01-20 17:52 | disposition home or self-care (01) ==
LOC: M SDC 06:00 → M MSPAV 12:56 → M SDC 17:52
PROVIDERS: ATTEND Specialist
DX: R10.2 Pelvic and perineal pain (principal); F41.9 Anxiety disorder, unspecified; F32.9 Major depressive disorder, single episode, unspecified; G43.909 Migraine, unspecified, not intractable, without status migrainosus; Z79.899 Other long term (current) drug therapy
CPT/HCPCS: 36415; 58570; 85027; 88307; J0131; J0690; J1100; J1170; J1885; J2250; J2270; J2405; J3010; S2900

== ENCOUNTER 2020-07-26 22:10 | Emergency (ER) | payer OTHER ==
[~2020-07-26] VITALS: Ht 142.2 cm; Wt 52.3 kg
[~2020-07-26 22:10] MED LIST changes: -LR 1,000 ML IV ONE
[2020-07-26 22:58] LABS: BASO % 0.1 % (0.0-1.0); HEMOGLOBIN 12.9 g/dl (12.0-15.5); LYMPH # 1.4 10^3/uL (1.5-5.0); LYMPH % 19.9 % (24.0-44.0); MEAN CORPUSCULAR HEMOGLOBIN 29.4 pg (27.0-33.0); MEAN CORPUSCULAR HGB CONC 32.3 g/dl (32.0-36.5); MEAN CORPUSCULAR VOLUME 91.1 fl (80.0-96.0); MONO # 0.5 10^3/uL (0.0-0.8); MONO % 7.5 % (2.0-8.0); NEUTROPHILS % 72.2 % (36.0-66.0); PLATELET COUNT, AUTOMATED 230 10^3/uL (150-450); RED BLOOD COUNT 4.39 10^6/uL (4.00-5.40)
[2020-07-26] MEDS ORDERED: NS 1,000 ML IV ONE (23:20)
[2020-07-26] MEDS ORDERED: cefTRIAXone SOD 1 GM in D5W MINI-BAG PLUS 50 ML IV ONE (23:20)
[2020-07-26] MEDS ORDERED: KETOROLAC 30 MG/ML 1ML VIAL IV ONE (23:20)
[2020-07-26 23:26] LABS: BILIRUBIN,DIRECT 0.1 MG/DL (0.0-0.2); BILIRUBIN,TOTAL 0.2 MG/DL (0.2-1.0); TOTAL PROTEIN 7.2 GM/DL (6.4-8.2)
[2020-07-26] MEDS ORDERED: ISOVUE-370 76% 100ML VIAL As Ordered ONE (23:30)
--- NOTE | 2020-07-26 23:59 | REPVR ---
PROCEDURE INFORMATION: Exam: CT Abdomen And Pelvis With Contrast Exam date and time: 07/26/2020 11:19 PM Age: 24 years old Clinical indication: Abdominal pain; Other: Suprapubic; Additional info: Flank/suprapubic pain ? pyelo TECHNIQUE: Imaging protocol: Computed tomography of the abdomen and pelvis with contrast. Axial, coronal and sagittal reformatted images were created and reviewed. Radiation optimization: All CT scans at this facility use at least one of these dose optimization techniques: automated exposure control; mA and/or kV adjustment per patient size (includes targeted exams where dose is matched to clinical indication); or iterative reconstruction. Contrast material: ISO; Contrast volume: 100 ml; Contrast route: INTRAVENOUS (IV); COMPARISON: RENAL US 05/25/2019 1:06 PM FINDINGS: Liver: Unremarkable. Gallbladder and bile ducts: No radiodense gallstones. No biliary ductal dilatation. Pancreas: Unremarkable. Spleen: Unremarkable. Adrenal glands: Normal. No mass. Kidneys and ureters: No mass. No radiodense calculi. No hydronephrosis. Stomach and bowel: No bowel wall thickening. No obstruction. No pneumatosis. Appendix: Findings suggestive of prior appendectomy. Intraperitoneal space: Trace nonspecific free pelvic fluid, likely physiologic. No organized fluid collection. No free air. Vasculature: Unremarkable. No aneurysm. Lymph nodes: No pathologically enlarged lymph nodes. Urinary bladder: Circumferential urinary bladder wall thickening and perivesicular edema. Reproductive: Status post hysterectomy. Bones/joints: No acute osseous abnormality. Soft tissues: Unremarkable. IMPRESSION: 1. Circumferential urinary bladder wall thickening and perivesicular edema, consistent with cystitis. Correlate with urinalysis. No evidence of acute pyelonephritis. 2. Additional findings, as above. Electronically signed by: Adam Christine On 07/26/2020 23:59:33 PM
[2020-07-27] MEDS ORDERED: CIPR5SUS PO (00:09)
[2020-07-27] MEDS ORDERED: PHENAZOPYRIDINE 100 MG TAB PO ONE (01:05)
[2020-07-27 01:11] VITALS: BP 103/58
== END 2020-07-27 01:20 | disposition home or self-care (01) ==
LOC: M ED 22:10
DX: N30.00 Acute cystitis without hematuria (principal); R68.83 Chills (without fever); M54.9 Dorsalgia, unspecified; Z87.442 Personal history of urinary calculi; F33.9 Major depressive disorder, recurrent, unspecified; F41.9 Anxiety disorder, unspecified
CPT/HCPCS: 74177; 80047; 80076; 81001; 83690; 85025; 87088; 87186; 96365; 96366; 96375; 99284; J0696; J1885; Q9967

== ENCOUNTER 2020-10-11 16:00 | Emergency (ER) | payer OTHER ==
[~2020-10-11] VITALS: Ht 142.2 cm; Wt 52.4 kg
[~2020-10-11 16:00] MED LIST changes: +CIPR5SUS PO
[2020-10-11] MEDS ORDERED: LEXA1TAB (16:07)
[2020-10-11 17:20] LABS: BASO % 0.4 % (0.0-1.0); HEMATOCRIT 41.6 % (36.0-47.0); HEMOGLOBIN 13.5 g/dl (12.0-15.5); LYMPH # 1.3 10^3/uL (1.5-5.0); LYMPH % 26.8 % (24.0-44.0); MEAN CORPUSCULAR HEMOGLOBIN 29.7 pg (27.0-33.0); MEAN CORPUSCULAR HGB CONC 32.5 g/dl (32.0-36.5); MEAN CORPUSCULAR VOLUME 91.4 fl (80.0-96.0); MONO # 0.4 10^3/uL (0.0-0.8); MONO % 8.5 % (2.0-8.0); NEUTROPHILS # 3.1 10^3/uL (1.5-8.5); NEUTROPHILS % 64.1 % (36.0-66.0); PLATELET COUNT, AUTOMATED 235 10^3/uL (150-450); RED BLOOD COUNT 4.55 10^6/uL (4.00-5.40); WHITE BLOOD COUNT 4.8 10^3/uL (4.0-10.0)
[2020-10-11 18:38] LABS: ALT/SGPT 43 U/L (12-78); BILIRUBIN,DIRECT < 0.1 MG/DL (0.0-0.2); BILIRUBIN,TOTAL 0.3 MG/DL (0.2-1.0); BLOOD UREA NITROGEN 10 MG/DL (7-18); CALCIUM LEVEL 9.3 MG/DL (8.5-10.1); CARBON DIOXIDE LEVEL 27 MEQ/L (21-32); CHLORIDE LEVEL 110 MEQ/L (98-107); CREATININE FOR GFR 0.72 MG/DL (0.55-1.30); GLOMERULAR FILTRATION RATE > 60.0 (>60); GLUCOSE, FASTING 90 MG/DL (70-100); HCG, SERUM QUALITATIVE NEGATIVE (NEGATIVE); LIPASE 72 U/L (73-393); POTASSIUM SERUM 4.3 MEQ/L (3.5-5.1); SODIUM LEVEL 140 MEQ/L (136-145); TOTAL PROTEIN 6.9 GM/DL (6.4-8.2)
[2020-10-11] MEDS ORDERED: KETOROLAC 60MG 2ML VIAL IM ONE (18:50)
[2020-10-11] MEDS ORDERED: diazePAM 10MG/2ML SYRINGE (J3360 PER 5MG) IM ONE (18:50)
--- NOTE | 2020-10-11 20:39 | REPVR ---
PROCEDURE INFORMATION: Exam: CT Abdomen And Pelvis Without Contrast Exam date and time: 10/11/2020 7:04 PM Age: 24 years old Clinical indication: Abdominal pain; Localized; Right; Additional info: Right flank pain TECHNIQUE: Imaging protocol: Computed tomography of the abdomen and pelvis without contrast. Radiation optimization: All CT scans at this facility use at least one of these dose optimization techniques: automated exposure control; mA and/or kV adjustment per patient size (includes targeted exams where dose is matched to clinical indication); or iterative reconstruction. COMPARISON: CT ABD/PEL W/IV CONTRAST ONLY 07/26/2020 11:35 PM FINDINGS: Lungs: Clear appearing lung bases. Liver: Normal appearing liver. Gallbladder and bile ducts: Normal gallbladder. Pancreas: Normal pancreas. Spleen: Normal appearing spleen. Adrenal glands: Normal adrenal glands. Kidneys and ureters: Punctate stone right kidney. Stomach and bowel: There are surgical clips along the margin of the cecum. There is no evidence of free fluid in the abdomen or the pelvis. Intraperitoneal space: There is no evidence of pneumoperitoneum. Vasculature: Unremarkable. No abdominal aortic aneurysm. Lymph nodes: Unremarkable. No enlarged lymph nodes. Urinary bladder: Normal urinary bladder. Reproductive: Patient is post hysterectomy. There is a 1.5 cm cyst of the left ovary. Bones/joints: Unremarkable. No acute fracture. Soft tissues: Unremarkable. IMPRESSION: 1. Punctate stone right kidney/nonobstructive. 2. 1.5 cm cyst left ovary. Electronically signed by: Ammon Stauffer On 10/11/2020 20:39:22 PM
[2020-10-11 20:55] VITALS: BP 111/60
== END 2020-10-11 21:00 | disposition home or self-care (01) ==
LOC: M ED 16:00
DX: R10.9 Unspecified abdominal pain (principal); M54.5 Low back pain; N83.202 Unspecified ovarian cyst, left side; N20.0 Calculus of kidney; F17.200 Nicotine dependence, unspecified, uncomplicated; Z79.899 Other long term (current) drug therapy

== ENCOUNTER → 2020-11-23 | Outpatient (REF) | payer OTHER ==
[~2020-11-23] MED LIST changes: +LEXA1TAB
== END ==
LOC: M PLALAB 10:07
PROVIDERS: ATTEND Obstetrics & Gynecology
DX: Z53.9 Procedure and treatment not carried out, unspecified reason (principal)

== ENCOUNTER → 2020-11-23 | Outpatient (CLI) | payer OTHER ==
[2020-11-23 13:50] LABS: FREE T4 0.79 NG/DL (0.76-1.46); THYROID STIMULATING HORMONE 0.318 uIU/ML (0.358-3.740)
[2020-11-23 13:51] LABS: FOLLICLE STIMULATING HORMONE 10.9 mIU/mL; LUTEINIZING HORMONE 3.6 mIU/mL
== END ==
LOC: M PLALAB 10:49
PROVIDERS: ATTEND Obstetrics & Gynecology
DX: N89.8 Other specified noninflammatory disorders of vagina (principal)

== ENCOUNTER → 2020-11-29 | Outpatient (CLI) | payer OTHER | LOC: M WHC 15:20 | PROVIDERS: ATTEND Obstetrics & Gynecology | DX: N83.202 Unspecified ovarian cyst, left side (principal) ==

== ENCOUNTER 2021-02-19 14:02 | Emergency (ER) | payer OTHER ==
[~2021-02-19] VITALS: Ht 142.2 cm; Wt 50.0 kg
--- OUTSIDE RECORDS SUMMARY | 2021-02-19 14:10 | CCD | Continuity of Care Document ---
Author Celina Sen Organization Unknown Address [address], [address] [place] [address] Phone [phone] Care Team Providers Care Aged Or Disabled Carer Name Role Phone Deshawn Calderon DO AUTM [phone] Problems Description No Information Available Social History Type Date Description Comments Sex Unknown ETOH Use 10/25/2020 Occasionally consumed alcohol in the past Tobacco Use Reviewed: 10/25/20 Patient has never smoked Recreational Drug Use 10/25/2020 Never Used Drugs Smoking Status Reviewed: 10/25/20 Patient has never smoked Allergies, Adverse Reactions, Alerts Description No Known Drug Allergies Medications Active Medications SIG Qnty Indications Ordering Provide r Date Peg-3350/Nacl/Na Bicarbonate/KCL 420gm Solution Rec use as directed before colonoscopy 4000ml Silvia Bishop NP 10/27/2020 Escitalopram Oxalate 10mg Tablets 1 by mouth every day Unknown Pantoprazole Sodium 40mg Tablets D R 1 by mouth every day Unknown Sucralfate 1gm Tablets 1 by mouth four times a day Unknown Dicyclomine HCL 10mg Capsules 1 by mouth every day as needed for abdominal pain Unknown Hydrocodone-Acetaminophen 5-325mg Tablets as needed Daryl Rivera MD Topiramate 50mg Tablets Take One Tablet By Mouth Twice A Day Unknown Immunizations Description No Information Available Vital Signs Date Vital Result Comment 11/11/2020 2:35pm BP Systolic 111 mmHg BP Diastolic 74 mmHg Heart Rate 68 /min Respiratory Rate 14 /min O2 % BldC Oximetry 100 % Pain Level 0 11/11/2020 2:28pm BP Systolic 113 mmHg BP Diastolic 76 mmHg Heart Rate 57 /min Respiratory Rate 16 /min O2 % BldC Oximetry 97 % Pain Level 1 Results Description No Information Available Procedures Date Code Description Status 11/11/2020 64760 Colonoscopy W/ Or W/O [place] Comp leted 11/11/2020 53984 Endoscopy W/BX Completed 10/25/2020 33000 Office/Outpatient New Moderate M DM 45-59 Minutes Completed Medical Devices Description No Information Available Encounters Type Date Location Provider Dx Diagnosis Office Visit 10/25/2020 10:30a [facility] Zev Ma R10.84 Generalized abdominal pain K62.5 Hemorrhage of anus and rectu m Assessments Date Code Description Provider 11/11/2020 K62.5 Hemorrhage of anus and rectum Mary Mathur MD 11/11/2020 K62.5 Hemorrhage of anus and rectum Amelia Crawford M.D. 11/11/2020 R10.9 Unspecified abdominal pain Fuentes Mathur MD 11/11/2020 R10.9 Unspecified abdominal pain Mayelin Crawford M.D. 10/25/2020 R10.84 Generalized abdominal pain Mayelin Crawford M.D. 10/25/2020 K62.5 Hemorrhage of anus and rectum Amelia Crawford M.D. Plan of Treatment Future Appointment(s):* 03/06/2021 9:40 am - Maite Bishop NATIONAL COVERAGE SPECIALIST at [facility] 10/25/2020 - Justice Crawford M.D.* R10.84 Generalized abdominal pain* Comments:* Patient with acute onset abdominal pain for about 2 weeks with no clear exacerbating is. Has had multiple imaging with CT, ultrasound, and blood work that have all been unremarkable. Still has persistent pain. Her pain seems more pelvic in nature but has complaints diffusely. Abdominal exam is relatively benign. Has not improved with pantoprazole, Sulcrafate, dicyclomine. Differential is peptic ulcer disease versus functional versus ENDOCRINOLOGY NURSE related. Given persistent symptoms we will proceed with EGD. * Recommendations:* Proceed with an upper endoscopy for further evaluation. The risks, benefits and alternatives of performing an upper endoscopy were discussed with the patient in detail. The risks discussed included but not limited to bleeding, infection, tear involving the bowels requiring surgery, as well as missed lesions and adverse reactions to sedation. All questions and concerns were answered. Can continue to resolve and Sulcrafate for now. Discussed trying to limit hydrocodone/acetaminophen use. * K62.5 Hemorrhage of anus and rectum* Comments:* Although bleeding most likely hemorrhoidal, will need to rule out other causes such as anal fissures versus colitis versus AVMs versus polyp versus malignancy. Plan for colonoscopy for further evaluation. * Recommendations:* I have discussed with the patient the risks, indication, benefits and alternatives to colonoscopy. The risks of anesthesia include but not limited to allergic reaction, hypotension, and respiratory compromise. The risks of colonoscopy include but not limited to bleeding, missed lesions, perforation and possible need for surgery. All questions and concerns were addressed. Functional Status Description No Information Available Mental Status Description No Information Available Referrals Description No Information Available
--- OUTSIDE RECORDS SUMMARY | 2021-02-19 14:10 | CCD ---
Author Author [facility] Organization [facility] Address Unknown Phone Unavailable Care Team Providers Care Manager Utilities Name Role Phone Ban Davis Unavailable PROBLEMS Type Condition ICD9-CM Code [id number] Code Onset Dates Condition S tatus W/U Status Risk SNOMED Code Notes Problem Supervision of other normal Z34.80 Ac tive confirm [id number] ALLERGIES No Known Allergies ENCOUNTERS from 1994 to 2020-12-02 Encounter Location Date Provider Diagnosis [facility] [address] [facility] [phone] [place] [address] Nov, Ban Davis IMMUNIZATIONS Vaccine Route Administration Date Status TDAP 0.5mL (Boostrix) IM Intramuscular May 15, 2019 Administe red SOCIAL HISTORY Tobacco Use: Social History Observation Description Date Details (start date - stop date) Never Smoker Sex Assigned At : Social History Observation Description Sex Assigned At Unknown Language: Question Answer Notes Languages spoken: Guamanian Domestic Violence: Question Answer Notes Status: No history of abuse Sexual Hx: Question Answer Notes Had sex in the last 12 months (vaginal, oral, or anal)? Yes LMP: 09/27/2018 with Men only Use protection? No Alcohol Screening: Question Answer Notes Did you have a drink containing alcohol in the past year? No Points 0 Interpretation Negative Tobacco Use: Question Answer Notes Are you a: never smoker REASON FOR REFERRAL No Information VITAL SIGNS No information MEDICATIONS Medication SIG (Take, Route, Frequency, Duration) Notes Start Da te End Date Status 28-0.8 MG 1 tablet Orally Once a day Not-Taking Ibuprofen Childrens 100 MG/5ML 30 ml with food or milk as needed Orally Three times a day for 14 days Oct, Active PROCEDURES No Information RESULTS No Results REASON FOR VISIT Ultrasound results MEDICAL (GENERAL) HISTORY Type Description Date Medical History History of Gestational hypertension Medical History Anxiety Medical History Depression Medical History kidney stones Surgical History Tonsillectomy Surgical History Appendectomy Surgical History D&C August 2015 Surgical History Uterine Ablation and Tubal 10/14/2019 Surgical History Hysterectomy 12/2019 Surgical History endoscopy Surgical History colonscopy Hospitalization History childbirth Hospitalization History surgical related Goals Section No Information Health Concerns No Information MEDICAL EQUIPMENT No Information MENTAL STATUS No Information FUNCTIONAL STATUS No Information ASSESSMENTS No Information PLAN OF TREATMENT No Information Insurance Providers Payer Name Payer Address Payer Phone Insured Name Patient Relati onship to Insured Coverage Start Date Coverage End Date [facility] [employer]POR[employer] CLAIMS DEPT [address] [facility] [phone] NATALIA COULTER self
--- OUTSIDE RECORDS SUMMARY | 2021-02-19 14:10 | CCD ---
Author Author [facility] Organization [facility] Address Unknown Phone Unavailable Care Team Providers Care Phys Ther Name Role Phone Hoang Scott Unavailable PROBLEMS Type Condition ICD9-CM Code [id number] Code Onset Dates Condition S tatus W/U Status Risk SNOMED Code Notes Problem Supervision of other normal Z34.80 Ac tive confirm [id number] ALLERGIES No Known Allergies ENCOUNTERS from 1994 to 2020-12-01 Encounter Location Date Provider Diagnosis [facility] [address] [facility] [phone] [place] [address] Sep, Hoang Scott IMMUNIZATIONS Vaccine Route Administration Date Status TDAP 0.5mL (Boostrix) IM Intramuscular May 15, 2019 Administe red SOCIAL HISTORY Tobacco Use: Social History Observation Description Date Details (start date - stop date) Never Smoker Sex Assigned At : Social History Observation Description Sex Assigned At Unknown Language: Question Answer Notes Languages spoken: Arabic Domestic Violence: Question Answer Notes Status: No [...] Information RESULTS No Results REASON FOR VISIT pelvic pain MEDICAL (GENERAL) HISTORY Type Description Date Medical [...] Insured Coverage Start Date Coverage End Date [facility] [employer]PORATE CLAIMS DEPT [address] [place] [phone] NATALIA COULTER self
--- OUTSIDE RECORDS SUMMARY | 2021-02-19 14:10 | CCD | Clinical Summary ---
Author Author [employer] Organization [facility] Address [address] [place] [address] Phone Care Team Providers Care Aquatic Habitat Biologist Name Role Phone Deshawn Calderon DO PP [phone] Deshawn Calderon DO Unavailable [phone] Reason for Referral No Reason for Referral Recorded Reason for Visit and Chief Complaint visit for: check-up, visit for: Telehealth Encounter for Acute Care. Telehealth is being utilized due to the COVID19 pandemic - The Chief Complaint is: pt iker jenna and screed for follow up meds via facetime, pt screened for approx 8 minutes [email or web address] Problems Includes: Problems addressed during this encounter and other active Problems Current Visit Onset Date - Time Resolved Date - Time Provider C ondition Status Anxiety Disorder Nos 05/11/2013 - 12:00AM Rkuhsana rojas NP Active Note: Unchanged Depression 02/27/2013 - 12:00AM Michelle Rojas P Active Past Visits Onset Date - Time Resolved Date - Time Provider Co ndition Status Headache Syndromes 03/03/2020 - 12:00AM Rukhsana Eli NP Active Ovarian Cyst 07/27/2019 - 12:00AM Rukhsana Eli NP Act sarthak Nephrolithiasis 07/27/2019 - 12:00AM Rukhsana Eli NP Active Arthropathy, unspecified 05/24/2015 - 12:00AM Michelle Rapp NP Active Arthralgia Pelvis / Hip / Femur 02/22/2015 - 12:00AM Hodan Rapp NP Active Note: bilateral chronic pain Contraceptive Surveillance 07/05/2014 - 12:00AM Claudia Hill NP Active Lumbago 07/05/2014 - 12:00AM Michelle Rojas P Active Radiculopathy 07/05/2014 - 12:00AM Michelle Rapp NP Active Scoliosis 05/02/2010 - 12:00AM Michelle Rojas P Active 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 Rukhsana rojas NP Chronic Disease Follow-up 06/16/2021 1:00PM [facility] Rukhsana Eli NP - Return to the clinic if condition worsens or new symptoms arise Assessments Includes: Assessments from this encounter - Depression - Anxiety disorder NOS Instructions Includes: Instructions from this encounter Education and Decision Aids were provide d during visit for: Patient education and counseling provi ded for chronic care goals and plan Patient appeared to understand therapeut ic regimen for Medications and Plan of Care; Assessed using Teach-back Method Medical Equipment - Implanted Devices Includes: Current DevicesNo Medical Equipment Recorded Medications Includes: Medications discussed during this encounter and other current Medicati ons Discontinued / Stopped on this date Rukhsana Eli [employer]ILDR[employer]S [employer]CH[employer] SUPERVISOR on 10/19/2020 Dicyclomine HCl 10 MG Oral Capsule Provi shanti: Rukhsana Eli NP Diagnosis: Epigastric pain Pantoprazole Sodium 40 MG Oral Tablet Delayed Release Provider: Zoya Cruz NP Diagnosis: Gastritis, unspecifi ed, without bleeding Sucralfate 1 GM Oral Tablet Provider: Rukhsana Eli NP Diagnosis: Epigastric pain Current Medications (continue as prescribed) Escitalopram Oxalate 20 MG Oral Tablet 11/22/2020 P rovider: Rukhsana Eli NP Diagnosis: Major depressive dis order, single episode, unspecified once a day- dose increased Medications Administered Includes: Administered Medications from this encounterNo Administered Medications Recorded Vital Signs Includes: Vital Signs from this encounter Vital Name 12/20/2020 10:39A Pain Level 0 Results Includes: Results discussed during this encounterNo Results Recorded For Specified Dates History of Present Illness Includes: History of Present Illness from this encounter Celina Connell is a 25 year old female. - Allergy list reviewed - Medication reconciliation performed Celina presents today for medication follow up via [facility] due to the pandemic coronavirus. She reports she has noted improvement in her mood. Her KARUNA and PHQ9 are slightly improved from prior. She continues to have a lot of stress at home. She is currently caring for one of her children's paternal grandfather's as he is on hospice. She is content with her current medication and happy with the dose she is on. Transfer screening reviewed. She had thoughts of hurting herself after her first child was born but denies any thoughts since that time. Denies ever developing a plan to harm herself. 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 She would like to try increasing her weight restrictions at work, we will provide a new note stating no lifting greater than 15 pounds. Social History Description Last Updated Alcohol use 10/06/2020 Denies alcohol consumption 11/28 Has high school diploma 12/20/2020 Not a smoker Greater than 30 pack years 12/20/2020 Not using drugs 10/06/2020 12/20/2020 Secondhand cigarette smoke exposure 12/20/2020 No secondhand cigarette smoke exposure 12/20/2020 Smoking status 12/20/2020 : Never smoker 12/20/2020 Procedures and Surgical History Includes: Procedures from this encounter Procedures Code Diagnosis Performing Provider Service Location Service Date counseling and coordination of care was more than 50% of encounter time medication management Clinical summary provided to patient Summary provided electronically in CCDA format & reasonable certainty of receipt Surgical History Last Updated History of appendectomy 12/20/2020 History of tonsillectomy 200212/20/2020 Prior surgery Appendectomy 4-10 ~T&A 200212/20/2020 Medical History Includes: Medical History addressed during this encounter Description Last Updated weight: was 3430 g 06/29/2019 RATNA ENT DELIVERED AT 39 2/7 WKS GESTATION AT [facility] VIA VAGINAL DELIVERY OF FEMALE WEIGHT 7 POUNDS 9 OUNCES KAYLIE CONNELL 12/20/2020 First visit was with another provider [facility] A WOMANS PERSPECTIVE 12/20/2020 4 12/20/2020 Para 2 12/20/2020 Past medical history -Please see Problem List for Act sarthak Chronic Problems 12/20/2020 Patient entered care during 1st trimester 11/27 11 2/7 WKS 12/20/2020 Family History Includes: Family History addressed during this encounter Description Last Updated Family history of cancer Paternal grand mother- ~Paternal grandfather- ~father- LUNG - tobacco hx 40-50 ~maternal grandmother- breast cancer 12/20/2020 Family history of depression brother is bipolar 12/20 Family history of depression Maternal Aunt ~Brother- bipolar 12/20/2020 Family history of diabetes mellitus paternal grandmot her 12/20/2020 Family history of early deaths maternal grandfather ~ father 12/20/2020 Family history of heart disease Maternal grandfather 12/20/2020 Family history of hypertension maternal grandmother 0 12/20/2020 Family history of not using drugs 12/20/2020 Maternal history of depression 12/20/2020 Maternal history of not using drugs 12/20/2020 No diagnosis of Family history of colon cancer in first degree relative before age 60 12/20/2020 No paternal history of depression 12/20/2020 Paternal history of not using drugs 12/20/2020 Review of Systems Includes: Review of Systems from this encounter Systemic: Not feeling poorly (malaise). Head: No headache. Neck: No neck pain. Eyes: No vision problems. Otolaryngeal: No hearing loss, no earache, no nasal discharge, and no sore throat. Cardiovascular: No chest pain or discomfort. Pulmonary: No dyspnea and no cough. Gastrointestinal: Normal appetite and no heartburn. No nausea, no vomiting, no abdominal pain, no diarrhea, and no constipation. Genitourinary: No genitourinary symptoms. Musculoskeletal: No muscle aches, no localized joint pain, and no localized joint stiffness. Neurological: No dizziness, no motor disturbances, and no sensory disturbances. Psychological: No psychological symptoms, no anxiety, no depression, and no sleep disturbances. Skin: No skin lesions and no rash. Mental Status Includes: Mental Status from this encounter Description Cognitive functioning was normal Oriented to time, place, and person Thought processes were not impaired No anxiety The thought content revealed no impairme nt Depression Functional Status Includes: Functional Status from this encounterNo Functional Status Recorded Physical Exam Includes: Physical Exam from this encounter General Status: -no cough -no dyspnea -well-appearing -alert -awake -in no acute distress -well developed -well nourished -active Eyes: -the conjunctiva exhibited no abnormalities -the extraocular movements were normal Ears, Nose, Throat: -no nasal discharge seen Psychiatric Exam: -the appearance was normal -the grooming was normal -the affect was normal -the mood was euthymic -thought processes were not impaired -the thought content revealed no impairment Neurological System: -cognitive functioning was normal -oriented to time, place, and person Skin: -the skin general appearance was normal Vital Signs: -current vital signs reviewed per patient report Immunizations Includes: Immunizations addressed during this encounterNo Immunizations Recorded Allergies Includes: Active AllergiesNo Known Allergies Encounters Encounter Provider Location Date Check-In Time Check-Out Time D iagnosis Acute Telehealth FaceTime Rukhsana Eli NP [facility] 12/20/2020 10:40AM 11:10AM Depression, Anxiety Disorder Nos Insurance Includes: Active Insurance Policies Plan Name Member ID Group # Subscriber Relationship Effective Da lex 1 - [place] [id number] Celina R Raum Self 03/29/2019 - Unknown 2 - [employer] Managed Medicaid [id number] Celina R Raum Self 08/27/2016 - Unknown Advance Directives Includes: Current Advance Directives Directive Pat Aware Third Libertarian Effective Date Reviewed Status Ebola Screening Performed Yes 12/28/2019 Current and Verified Note: Within the last month, have you traveled outside of the [place]? - NO packet given Pt Bill of Rights, Priv Prac, Ad Dir Yes 08/04/2020 Current and Verified Note: Pt declined AD packet Health Concerns Includes: Health Concerns for Goals addressed during this encounterNo Active Health Concerns Recorded Goals Includes: Active Goals addressed during this encounterNo Active Goals Recorded Interventions Includes: Interventions for Goals addressed during this encounterNo Interventions Recorded Evaluations & Outcomes Includes: Evaluations & Outcomes for Goals addressed during this encounterNo Outcomes Recorded
--- OUTSIDE RECORDS SUMMARY | 2021-02-19 14:10 | CCD ---
Author Author [facility] Organization [facility] Address Unknown Phone Unavailable Care Team Providers Care Plow And Boring Machine Tender Name Role Phone Ban Davis Unavailable PROBLEMS Type Condition ICD9-CM Code [id number] Code Onset Dates Condition S tatus W/U Status Risk SNOMED Code Notes Problem Supervision of other normal Z34.80 Ac tive confirm [id number] ALLERGIES No Known Allergies ENCOUNTERS from 1994 to 2020-11-24 Encounter Location Date Provider Diagnosis [facility] [address] [facility] [phone] [place] [address] Oct, Ban Davis IMMUNIZATIONS Vaccine Route Administration Date Status TDAP 0.5mL (Boostrix) IM Intramuscular May 15, 2019 Administe red SOCIAL HISTORY Tobacco Use: Social History Observation Description Date Details (start date - stop date) Never Smoker Sex Assigned At : Social History Observation Description Sex Assigned At Unknown Language: Question Answer Notes Languages spoken: Anguillan Domestic Violence: Question Answer Notes Status: No [...] Information RESULTS No Results REASON FOR VISIT Lab results MEDICAL (GENERAL) HISTORY Type Description Date [...] HEALTH CORPORATE CLAIMS DEPT [address] [place] [phone] NATALIA COULTER self
--- OUTSIDE RECORDS SUMMARY | 2021-02-19 14:10 | CCD ---
Author Author [facility] Organization [facility] Address Unknown Phone Unavailable Care Team Providers Care Dean Of Girls Name Role Phone Ban Davis Unavailable PROBLEMS Type Condition ICD9-CM Code [id number] Code Onset Dates Condition S tatus W/U Status Risk SNOMED Code Notes Problem Supervision of other normal Z34.80 Ac tive confirm [id number] ALLERGIES No Known Allergies ENCOUNTERS from 1994 to 2020-11-26 Encounter Location Date Provider Diagnosis [facility] [address] [facility] [phone] [place] [address] Oct, Ban Davis Pelvic pain R10.2 ; Vaginal dryness N89.8 and Ovarian cyst, left N83.202 IMMUNIZATIONS Vaccine Route Administration Date Status TDAP 0.5mL (Boostrix) IM Intramuscular May 15, 2019 Administe red SOCIAL HISTORY Tobacco Use: Social History Observation Description Date Details (start date - stop date) Never Smoker Sex Assigned At : Social History Observation Description Sex Assigned At Unknown Language: Question Answer Notes Languages spoken: Irish Domestic Violence: Question Answer Notes Status: No [...] REASON FOR REFERRAL No Information VITAL SIGNS Weight 111.8 lbs Oct, Height 59 in Oct, BMI 22.58 kg/m2 Oct, Blood pressure systolic 110 mm Hg Oct, Blood pressure diastolic 76 mm Hg Oct, MEDICATIONS Medication SIG (Take, Route, Frequency, Duration) Notes Start Da te End Date Status 28-0.8 MG 1 tablet Orally Once a day Not-Taking Ibuprofen Childrens 100 MG/5ML 30 ml with food or milk as needed Orally Three times a day for 14 days Oct, Active PROCEDURES No Information RESULTS Component Value Reference Range FSH & LH EVAL Reviewed date:11/23/2020 14:16:46 Interpretation: Performing Lab:[facility] [address] [address] [facility] [address] , ,[place] [address] FOLLICLE STIMULATING HORMONE 10.9 LUTEINIZING HORMONE 3.6 FREE T4 & TSH PANEL Reviewed date:11/23/2020 17:22:23 Interpretation: Performing Lab:[facility] [address] [facility] [address] , ,[facility] THYROID STIMULATING HORMONE 0.318 0.358-3.740 FREE T4 0.79 0.76-1.46 REASON FOR VISIT cyst on left ovary MEDICAL (GENERAL) HISTORY Type Description Date Medical [...] No Information FUNCTIONAL STATUS No Information ASSESSMENTS Encounter Date Diagnosis Assessment Notes Treatment Notes Treatm ent Clinical Notes Oct, Pelvic pain (ICD-10 - R10.2) I suspect patient's pain is not vice president fixed income in etiology. Will repeat pelvic ultrasound to assess for resolution of small ovarian cyst. Oct, Vaginal dryness (ICD-10 - N89.8) Low suspicion for premature ovarian failure, but patient states she has "every symptom of menopause" so FSH/LH ordered as well as TSH/T4. Oct, Ovarian cyst, left (ICD-10 - N83.202) PLAN OF TREATMENT Treatment Notes Assessment Notes Clinical Notes Pelvic pain I suspect patient's pain is not vice president fixed income in etiology. Will repeat pelvic ultrasound to assess for resolution of small ovarian cyst. Vaginal dryness Low suspicion for premature ovarian failure, but patient states she has "every symptom of menopause" so FSH/LH ordered as well as TSH/T4. Treatment Notes Test Name Order Date [facility] Pelvis non-OB COMPLETE 2020-11-23 Next Appt Details prn Reason: Insurance Providers Payer Name Payer Address Payer Phone Insured Name Patient Relati onship to Insured Coverage Start Date Coverage End Date [facility] CORPORATE CLAIMS DEPT [address] [facility] [phone] NATALIA COULTER self
[2021-02-19 15:06] LABS: BASO % 0.2 % (0.0-1.0); HEMATOCRIT 42.8 % (36.0-47.0); HEMOGLOBIN 14.2 g/dl (12.0-15.5); LYMPH # 1.3 10^3/uL (1.5-5.0); LYMPH % 22.2 % (24.0-44.0); MEAN CORPUSCULAR HEMOGLOBIN 29.4 pg (27.0-33.0); MEAN CORPUSCULAR HGB CONC 33.2 g/dl (32.0-36.5); MEAN CORPUSCULAR VOLUME 88.6 fl (80.0-96.0); MONO # 0.4 10^3/uL (0.0-0.8); MONO % 6.2 % (2.0-8.0); NEUTROPHILS # 4.2 10^3/uL (1.5-8.5); NEUTROPHILS % 71.2 % (36.0-66.0); PLATELET COUNT, AUTOMATED 254 10^3/uL (150-450); RED BLOOD COUNT 4.83 10^6/uL (4.00-5.40); WHITE BLOOD COUNT 5.8 10^3/uL (4.0-10.0)
[2021-02-19 15:29] LABS: HCG, SERUM QUALITATIVE NEGATIVE (NEGATIVE)
[2021-02-19 15:41] LABS: ALBUMIN 4.3 GM/DL (3.2-5.2); ALT/SGPT 31 U/L (12-78); BILIRUBIN,DIRECT 0.2 MG/DL (0.0-0.2); BILIRUBIN,TOTAL 0.6 MG/DL (0.2-1.0); BLOOD UREA NITROGEN 14 MG/DL (7-18); CALCIUM LEVEL 9.7 MG/DL (8.5-10.1); CARBON DIOXIDE LEVEL 25 MEQ/L (21-32); CHLORIDE LEVEL 108 MEQ/L (98-107); CREATININE FOR GFR 0.68 MG/DL (0.55-1.30); GLOMERULAR FILTRATION RATE > 60.0 (>60); GLUCOSE, FASTING 85 MG/DL (70-100); LIPASE 47 U/L (73-393); POTASSIUM SERUM 3.7 MEQ/L (3.5-5.1); SODIUM LEVEL 141 MEQ/L (136-145); TOTAL PROTEIN 7.5 GM/DL (6.4-8.2)
[2021-02-19] MEDS ORDERED: ONDANSETRON 4 MG ORAL DISINTEGRATING TAB PO ONE (15:45)
[2021-02-19] MEDS ORDERED: KETOROLAC 60MG 2ML VIAL IM ONE (15:45)
--- NOTE | 2021-02-19 16:27 | REP ---
INDICATION: LLQ abd pain, r/o ovarian torsion. COMPARISON: None. TECHNIQUE: Transabdominal ultrasound evaluation of the pelvis was performed. FINDINGS: The uterus is surgically absent. The right ovary measures 2.8 x 2.9 x 1.0 cm with a resistive index of 0.43. The left ovary measures 3.0 x 2.70 1.9 cm with a resistive index of 0.61. There are no abnormal adnexal masses or free fluid in the pelvis. IMPRESSION: 1. The uterus is surgically absent. 2. The ovaries are unremarkable. <Electronically signed by Chris Zhang > 02/19/21 [id number]
[2021-02-19] MEDS ORDERED: NORCO, ANEXSIA 5/325MG TABLET (HYDROcodone/ACETAMINOPHEN) PO ONE (17:15)
[2021-02-19 17:20] VITALS: BP 116/69
== END 2021-02-19 17:41 | disposition home or self-care (01) ==
LOC: M ED 14:02
DX: G89.29 Other chronic pain (principal); R10.32 Left lower quadrant pain; Z90.710 Acquired absence of both cervix and uterus; Z90.89 Acquired absence of other organs
CPT/HCPCS: 36415; 76856; 80048; 80076; 81001; 83690; 84703; 85025; 96372; 99283; J1885; Q0162

== ENCOUNTER → 2021-08-30 | Outpatient (CLI) | payer OTHER ==
[~2021-08-30] MED LIST changes: +MULT1CHW29 PO
== END ==
LOC: M LABSMTC 10:16
PROVIDERS: ATTEND Anesthesiology
DX: Z01.818 Encounter for other preprocedural examination (principal); Z11.52 Encounter for screening for COVID-19

== ENCOUNTER 2021-09-04 14:24 | Day surgery (SDC) | payer OTHER ==
[~2021-09-04] VITALS: Ht 142.2 cm; Wt 47.2 kg
[~2021-09-04 14:24] MED LIST changes: +LR 1,000 ML IV ONE
[2021-09-04 15:11] LABS: HEMATOCRIT 40.7 % (36.0-47.0); HEMOGLOBIN 13.6 g/dl (12.0-15.5); MEAN CORPUSCULAR HEMOGLOBIN 29.3 pg (27.0-33.0); MEAN CORPUSCULAR HGB CONC 33.4 g/dl (32.0-36.5); MEAN CORPUSCULAR VOLUME 87.7 fl (80.0-96.0); PLATELET COUNT, AUTOMATED 216 10^3/uL (150-450); RED BLOOD COUNT 4.64 10^6/uL (4.00-5.40); WHITE BLOOD COUNT 5.4 10^3/uL (4.0-10.0)
[2021-09-04] MEDS ORDERED: IBUP-1822 PO (16:10)
[2021-09-04] MEDS ORDERED: OXYC1SOL3 PO (16:12)
[2021-09-04] MEDS ORDERED: ROCURONIUM BROMIDE 50 MG/5 ML VIAL As Ordered ONE (16:28)
[2021-09-04] MEDS ORDERED: MIDAZOLAM INJ 2MG/2ML VIAL (J2250 PER 1MG) As Ordered ONE (16:28)
[2021-09-04] MEDS ORDERED: fentaNYL 100 MCG/2 ML INJECTION As Ordered ONE (16:28)
[2021-09-04] MEDS ORDERED: propofoL 200 MG/20 ML VIAL As Ordered ONE (16:28)
[2021-09-04] MEDS ORDERED: LIDOCAINE 2% 100MG/5ML SDV (FOR ANES.) As Ordered ONE (16:28)
[2021-09-04] MEDS ORDERED: BUPIVACAINE HCL 0.25% 30ML VIAL As Ordered ONE (16:52)
[2021-09-04] MEDS ORDERED: dexameTHASONE 4 MG/ML 1ML VIAL (J1100 PER 1MG) As Ordered ONE (17:23)
[2021-09-04] MEDS ORDERED: HYDROmorphone HCL 2MG/ML 1ML VIAL As Ordered ONE (17:24)
[2021-09-04] MEDS ORDERED: PHENYLephrine 500MCG 5ML (100MCG/ML) SYRINGE As Ordered ONE (17:38)
[2021-09-04] MEDS ORDERED: METOCLOPRAMIDE INJ 10MG/2ML VIAL (J2765 PER 1) As Ordered ONE (17:39)
[2021-09-04] MEDS ORDERED: ONDANSETRON 4MG/2ML VIAL As Ordered ONE (17:39)
[2021-09-04] MEDS ORDERED: KETOROLAC 60MG 2ML VIAL As Ordered ONE (17:39)
[2021-09-04] MEDS ORDERED: SUGAMMADEX SODIUM 500 MG/5 ML VIAL (BRIDION) As Ordered ONE (17:39)
[2021-09-04] MEDS ORDERED: ACETAMINOPHEN 1000MG 100ML IV BTL (OFIRMEV) (J0131 PER 10MG) As Ordered ONE (17:40)
[2021-09-04] MEDS ORDERED: PERCOCET 5MG/325MG TAB PO PRN (18:25)
[2021-09-04] MEDS ORDERED: ONDANSETRON 4MG/2ML VIAL IV PRN (18:25)
[2021-09-04] MEDS ORDERED: LR 1,000 ML IV SCH ×2 (18:25)
[2021-09-04] MEDS ORDERED: oxyCODONE 5MG TAB PO PRN (18:25)
[2021-09-04] MEDS ORDERED: fentaNYL 100 MCG/2 ML INJECTION IV PRN (18:25)
[2021-09-04 20:15] VITALS: BP 100/51
== END 2021-09-04 20:31 | disposition home or self-care (01) ==
LOC: M SDC 14:24
PROVIDERS: ATTEND Specialist
DX: N83.201 Unspecified ovarian cyst, right side (principal); N83.202 Unspecified ovarian cyst, left side; F33.9 Major depressive disorder, recurrent, unspecified; F41.9 Anxiety disorder, unspecified; G80.9 Cerebral palsy, unspecified; R06.83 Snoring; Z87.442 Personal history of urinary calculi; Z79.899 Other long term (current) drug therapy
CPT/HCPCS: 36415; 58661; 85027; 86850; 86900; 86901; 88305; J0131; J1100; J1170; J1885; J2250; J2370; J2405; J2765; J3010

== ENCOUNTER 2021-12-05 21:15 | Emergency (ER) | payer OTHER ==
[~2021-12-05] VITALS: Ht 142.2 cm; Wt 49.0 kg
[~2021-12-05 21:15] MED LIST changes: +IBUP-1822 PO; -LR 1,000 ML IV ONE; +OXYC1SOL3 PO
[2021-12-05] MEDS ORDERED: PROP10TA56 PO (21:37)
[2021-12-05 23:39] VITALS: BP 117/62
[2021-12-05] MEDS ORDERED: KETOROLAC 30 MG/ML 1ML VIAL IM ONE (23:55)
== END 2021-12-06 00:07 | disposition home or self-care (01) ==
LOC: M ED 21:15
DX: S09.93XA Unspecified injury of face, initial encounter (principal); R68.84 Jaw pain; Y04.2XXA Assault by strike against or bumped into by another person, initial encounter; I10 Essential (primary) hypertension; Y92.9 Unspecified place or not applicable; Y93.9 Activity, unspecified; Y99.9 Unspecified external cause status
CPT/HCPCS: 70450; 70486; 72125; 96372; 99283; J1885